=== PATIENT | female | born 1955 | race Caucasian/White ===

== ENCOUNTER 2021-10-18 08:11 | Outpatient (CLI) | payer OTHER ==
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
== END 2021-10-18 08:12 | disposition home or self-care (01) ==
LOC: DI 08:11
PROVIDERS: ATTEND Physician Assistant
DX: M54.9 Dorsalgia, unspecified (principal)

== ENCOUNTER 2023-02-14 21:50 | Outpatient (CLI) | payer OTHER | END 2023-02-14 23:59 | disposition critical access hospital (66) | LOC: EMS 21:50 | DX: M25.561 Pain in right knee (principal); R07.81 Pleurodynia; V20.59XA Other motorcycle passenger injured in collision with pedestrian or animal in traffic accident, initial encounter; Y92.414 Local residential or business street as the place of occurrence of the external cause | CPT/HCPCS: A0425; A0429 ==

== ENCOUNTER 2023-02-14 21:59 | Emergency (ER) | payer OTHER, MEDICARE ==
[2023-02-14] MEDS ORDERED: ONDANSETRON 4 MG/2 ML VIAL IVP STA (22:09)
[2023-02-14] MEDS ORDERED: MORPHINE 2 MG/ML CARPUJECT IVP STA (22:09)
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
[2023-02-14 22:59] LABS: BASOPHILS # (AUTO) 0.1 10^3/uL (0.0-0.1); BASOPHILS % (AUTO) 0.8 %; EOSINOPHILS # (AUTO) 0.2 10^3/uL (0.0-0.7); EOSINOPHILS % (AUTO) 2.4 %; HCT - HEMATOCRIT 39.1 % (37.0-47.0); HGB - HEMOGLOBIN 12.5 g/dL (12.0-16.0); LYMPHOCYTES # (AUTO) 1.6 10^3/uL (1.5-3.5); LYMPHOCYTES % (AUTO) 18.8 %; MEAN PLATELET VOLUME 9.1 fL (7.9-10.8); MONOCYTES # (AUTO) 0.7 10^3/uL (0.0-1.0); MONOCYTES % (AUTO) 8.4 %; NEUTROPHILS # (AUTO) 5.9 10^3/uL (1.5-6.6); NEUTROPHILS % (AUTO) 69.4 %; PLT - PLATELET COUNT 280 10^3/uL (130-450); RED BLOOD COUNT 4.16 10^6/uL (4.20-5.40); RED CELL DISTRIBUTION WIDTH 12.6 % (12.0-15.0); WHITE BLOOD COUNT 8.5 x10^3/uL (4.8-10.8)
[2023-02-14] MEDS ORDERED: iohexoL-300 100 ML VIAL ONE (23:10)
[2023-02-14 23:13] LABS: CALCIUM 8.6 mg/dL (8.5-10.3); CREATININE 0.8 mg/dL (0.4-1.0)
[2023-02-14] MEDS ORDERED: iohexoL-300 100 ML VIAL IVP ONE (23:48)
[2023-02-14] MEDS ORDERED: LORazepam 2 MG/ML VIAL IVP STA (23:58)
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
[2023-02-15] MEDS ORDERED: KETOROLAC 15 MG/ML VIAL IVP STA (00:25)
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
[2023-02-15] MEDS ORDERED: LIDOCAINE PATCH 5% TOP STA (01:21)
[2023-02-15] MEDS ORDERED: oxyCODONE/ACET 5/325 Prepack 4 PO STA (01:21)
[2023-02-15] MEDS: CYCLOBENZAPRINE 10 MG Prepack 2 PO PRN ×2 (01:35→01:43)
[2023-02-15 03:04] VITALS: BP 109/50
== END 2023-02-15 03:07 | disposition home or self-care (01) ==
LOC: EDUNIT# → ED 21:59
DX: S80.212A Abrasion, left knee, initial encounter (principal); S89.91XA Unspecified injury of right lower leg, initial encounter; S70.211A Abrasion, right hip, initial encounter; V20.59XA Other motorcycle passenger injured in collision with pedestrian or animal in traffic accident, initial encounter; Y93.55 Activity, bike riding; Y92.410 Unspecified street and highway as the place of occurrence of the external cause; R07.89 Other chest pain
CPT/HCPCS: 36415; 71045; 71260; 72170; 73562; 80048; 85025; 96374; 96375; 99284; 99285; A9270; J2060; Q9967